=== PATIENT | male | born 1975 | race Hispanic/Latino ===

== ENCOUNTER 2018-06-08 09:46 | Outpatient (CLI) | payer OTHER ==
--- NOTE | 2018-06-08 13:54 | Ultrasound Report ---
ABDOMINAL ULTRASOUND: 06/08/18 09:46:00 CLINICAL: HIV FINDINGS: High-resolution ultrasound demonstrates a normal liver with normal size, contour and echogenicity. No liver nodularity or mass. The right lobe measures 15.4 cm in length. Normal hepatic vasculature and inferior vena cava. The gallbladder is normally distended with no stones. The gallbladder wall measures 1.5 mm. Normal intrahepatic and extrahepatic bile ducts. The common bile duct measures 3.8 mm diameter. The pancreas is small and unremarkable. Normal abdominal aorta. The spleen mildly enlarged but is otherwise normal. It measures 11.9 x 4.6 x 5.1 cm. Normal echogenicity of the kidneys but mild bilateral renal cortical irregularity. Normal non-dilated renal collecting systems and ureters. The right kidney measures 11.9 x 4.8 x 5.4 cm. The left kidney measures 11.2 x 5.3 x 5.0 cm. An exophytic right upper pole renal cyst measures 1.7 x 1.3 x 1.6 cm. No solid mass or calculus. No ascites or mass. IMPRESSION: 1. Normal liver and biliary tract. 2. Mild splenomegaly without identified etiology. Although portal hypertension is a possibility, there are no other signs to suggest it. 3. Mild bilateral renal cortical scarring. 4. A benign 1.7 severe right upper pole renal cyst.
== END 2018-06-08 09:47 | disposition home or self-care (01) ==
LOC: SPVWC 09:46
PROVIDERS: ATTEND Internal Medicine Infectious Disease
DX: R16.1 Splenomegaly, not elsewhere classified (principal); B20 Human immunodeficiency virus [HIV] disease; N28.89 Other specified disorders of kidney and ureter; N28.1 Cyst of kidney, acquired; Z88.0 Allergy status to penicillin
CPT/HCPCS: 76700